=== PATIENT | female | born 1995 | race Caucasian/White ===

== ENCOUNTER → 2019-05-18 | Outpatient (CLI) | payer BC, SELFPAY ==
[2019-05-18 10:49] VITALS: BMI 25.5
[2019-05-18 13:22] LABS: HIV - WCH Non-Reactive (Nonreactive)
[2019-05-18 14:57] LABS: Chlamydia Trachomatis by PCR Negative (Negative); Neisserai gonorrhoeae by PCR Negative (Negative); Probe Check PASS; Sample Adequacy Control PASS; Specimen Processing Control PASS
[2019-05-21 02:32] LABS: Rapid Plasmin Reagin (RPR) NONREACTIVE (NONREACTIVE)
[2019-05-22 03:06] LABS: HCV Quant. RNA PCR HCV Not Detected IU/mL (.)
[2019-05-24 11:36] LABS: HEPATITIS B SURFACE AG Negative (Negative); HSV 1 IgG < 0.91 index (0.00-0.90); HSV 2 IgG < 0.91 index (0.00-0.90)
[2019-05-24 17:34] LABS: HPV Reflexed? NOT INDICATED
== END | disposition home or self-care (01) ==
PROVIDERS: Referring Provider Nurse Practitioner Women's Health; Visit Provider Nurse Practitioner Women's Health
DX: Z12.4 Encounter for screening for malignant neoplasm of cervix (principal); Z11.3 Encounter for screening for infections with a predominantly sexual mode of transmission
CPT/HCPCS: 86592; 86695; 86696; 86703; 87340; 87491; 87522; 87591; 87624; 88175; G0145

== ENCOUNTER → 2020-01-18 | Outpatient (CLI) | payer BC, SELFPAY ==
[2020-01-18 09:46] VITALS: BMI 26.6
[2020-01-18 12:27] LABS: Absolute Lymphocyte Count 1.82 X10^3/uL (0.83-4.51); Basophil# 0.03 X10^3/uL; Basophil% 0.5 % (0-1); Eosinophil# 0.11 X10^3/uL; Hematocrit 38.3 % (37-47); Hemoglobin 12.9 g/dL (12.0-15.0); Lymphocyte # 1.82 X10^3/ul (4.0); Lymphocyte % 33.3 % (19-41); Mean Corp Hgb Conc 33.7 g/dL (32-36); Mean Corpuscular Hgb 29.2 pg (27.0-32.0); Mean Corpuscular Volume 86.7 fL (81-99); Mean Platelet Vol. 11.4 fl (6.2-12.0); Monocyte# 0.52 X10^3/uL; Monocyte% 9.5 % (0-10); NRBC Flagged by Analyzer 0 % (0-5); Neutrophil # 2.96 X10^3/uL (2.7-7.7); Neutrophil % 54.3 % (47-70); Platelet Count 195 K/mm3 (150-450); RBC Distribution Width CV 11.9 % (11.6-14.6); Red Blood Count 4.42 M/mm3 (4.2-5.4); White Blood Count 5.5 K/mm3 (4.4-11.0)
[2020-01-18 12:51] LABS: Anion Gap 7 (5-15); BUN 10 mg/dL (7-18); BUN/Creat Ratio 13.4 RATIO (10-20); Chloride 108 mmol/L (98-107); Creatinine, Serum 0.75 mg/dL (0.55-1.02); EST Glomerular Filtration Rate 99 mL/min (>60); Est Glom Filt Rate - Afr Amer 120 mL/min (>60); Glucose 112 mg/dL (74-106); Sodium Level 140 mmol/L (136-145); T4 Free Direct 0.87 ng/dL (0.76-1.46); Thyroid Stim Hormone (TSH) 2.41 uIU/mL (0.358-3.74)
== END | disposition home or self-care (01) ==
LOC: BIMLAB 10:20
PROVIDERS: PCP Internal Medicine; Visit Provider Internal Medicine
DX: F32.9 Major depressive disorder, single episode, unspecified (principal); F41.9 Anxiety disorder, unspecified
CPT/HCPCS: 36415; 80048; 84439; 84443; 85025

== ENCOUNTER → 2020-05-18 09:20 | Outpatient (CLI) | payer BC, SELFPAY ==
[2020-05-18 09:06] VITALS: BMI 26.6
[2020-05-18 10:47] LABS: HIV - WCH Non-Reactive (Nonreactive)
[2020-05-18 16:20] LABS: Chlamydia Trachomatis by PCR Negative (Negative); Neisserai gonorrhoeae by PCR Negative (Negative); Probe Check PASS; Sample Adequacy Control PASS; Specimen Processing Control PASS
[2020-05-20 12:07] LABS: HCV Quant. RNA PCR HCV Not Detected IU/mL (.)
[2020-05-20 14:33] LABS: HSV 1 IgG < 0.91 index (0.00-0.90); HSV 2 IgG < 0.91 index (0.00-0.90)
[2020-05-25 02:00] LABS: Rapid Plasmin Reagin (RPR) NONREACTIVE (NONREACTIVE)
== END ==
PROVIDERS: PCP Internal Medicine; Referring Provider Nurse Practitioner Women's Health; Visit Provider Nurse Practitioner Women's Health
DX: Z11.3 Encounter for screening for infections with a predominantly sexual mode of transmission (principal)
CPT/HCPCS: 36415; 86592; 86695; 86696; 86703; 87491; 87522; 87591

== ENCOUNTER 2021-03-07 09:05 | Outpatient (RCR) | payer BC, SELFPAY ==
[2021-01-30 10:12] VITALS: BMI 33.0
== END 2021-05-08 23:59 ==
LOC: IMMUN 09:05
PROVIDERS: PCP Internal Medicine; Referring Provider Family Medicine; Visit Provider Family Medicine
DX: Z23 Encounter for immunization (principal)
CPT/HCPCS: 0001A; 0002A; 91300

== ENCOUNTER → 2021-06-01 10:49 | Outpatient (CLI) | payer BC, SELFPAY ==
[2021-06-01 10:27] VITALS: BMI 31.8
[2021-06-01 12:22] LABS: Absolute Lymphocyte Count 2.25 X10^3/uL (0.83-4.51); Absolute Neutrophil Count 4.9 X10^3/uL (2.0-7.7); Basophil# 0.06 X10^3/uL; Basophil% 0.8 % (0-1); Eosinophil# 0.13 X10^3/uL; Eosinophils% 1.6 % (0-5); Hematocrit 39.5 % (37-47); Hemoglobin 13.1 g/dL (12.0-15.0); Lymphocyte # 2.25 X10^3/ul (0.83-4.51); Lymphocyte % 28.3 % (19-41); Mean Corp Hgb Conc 33.2 g/dL (32-36); Mean Corpuscular Hgb 28.7 pg (27.0-32.0); Mean Corpuscular Volume 86.6 fL (81-99); Mean Platelet Vol. 10.8 fl (6.2-12.0); Monocyte# 0.63 X10^3/uL; Monocyte% 7.9 % (0-10); NRBC Flagged by Analyzer 0 % (0-5); Neutrophil # 4.86 X10^3/uL (2.7-7.7); Platelet Count 270 K/mm3 (150-450); RBC Distribution Width CV 12.9 % (11.6-14.6); RBC Distribution Width SD 40.3 fl (35.1-43.9); Red Blood Count 4.56 M/mm3 (4.2-5.4)
[2021-06-01 12:44] LABS: AST(SGOT) 28 U/L (15-37); Alanine Aminotransfer ALT/SGPT 42 U/L (13-56); Albumin, Serum 3.8 g/dL (3.2-5.0); Alkaline Phosphatase 77 U/L (45-117); Anion Gap 6 (5-15); BUN 11 mg/dL (7-18); BUN/Creat Ratio 17.5 RATIO (10-20); Calcium,Total 8.9 mg/dL (8.5-10.1); Chloride 104 mmol/L (98-107); Cholesterol 185 mg/dL (200); Creatinine, Serum 0.63 mg/dL (0.55-1.02); EST Glomerular Filtration Rate 120 mL/min (>60); Est Glom Filt Rate - Afr Amer 145 mL/min (>60); Globulin 3.9 g/dL (2.2-4.2); Glucose 87 mg/dL (74-106); High Density Lipoprotein 71 mg/dL; Protein, Total 7.7 g/dL (6.4-8.2); Sodium Level 137 mmol/L (136-145); Triglycerides 129 mg/dL; Very Low Density Lipoprotein 26 mg/dL (5-40)
== END ==
PROVIDERS: PCP Internal Medicine; Referring Provider Internal Medicine; Visit Provider Internal Medicine
DX: E66.9 Obesity, unspecified (principal); F32.9 Major depressive disorder, single episode, unspecified; F41.9 Anxiety disorder, unspecified
CPT/HCPCS: 36415; 80053; 80061; 85025

== ENCOUNTER → 2022-05-01 | Outpatient (CLI) | payer BC, SELFPAY ==
[2022-05-03 22:06] LABS: Chlamydia By Nucleic Acid AMP Negative (Negative)
[2022-05-03 22:32] LABS: Gonococcus By Nucleic Acid AMP Negative (Negative)
[2022-05-07 17:24] LABS: HPV Reflexed? NOT INDICATED
== END | disposition home or self-care (01) ==
LOC: LABSPEC 16:22
PROVIDERS: PCP Internal Medicine; Visit Provider Nurse Practitioner Women's Health
DX: N89.8 Other specified noninflammatory disorders of vagina (principal); Z11.3 Encounter for screening for infections with a predominantly sexual mode of transmission; Z12.4 Encounter for screening for malignant neoplasm of cervix
CPT/HCPCS: 87070; 87205; 87491; 87591; 88175; G0145

== ENCOUNTER → 2022-06-10 | Outpatient (CLI) | payer BC, SELFPAY ==
[2022-06-10 16:43] LABS: Absolute Lymphocyte Count 2.96 X10^3/uL (0.83-4.51); Absolute Neutrophil Count 4.9 X10^3/uL (2.0-7.7); Basophil# 0.04 X10^3/uL; Basophil% 0.5 % (0-1); Eosinophil# 0.14 X10^3/uL; Eosinophils% 1.6 % (0-5); Hematocrit 38.2 % (37-47); Hemoglobin 12.6 g/dL (12.0-15.0); Lymphocyte # 2.96 X10^3/ul (0.83-4.51); Lymphocyte % 33.8 % (19-41); Mean Corpuscular Volume 87.8 fL (81-99); Mean Platelet Vol. 10.7 fl (6.2-12.0); Monocyte# 0.64 X10^3/uL; Monocyte% 7.3 % (0-10); NRBC Flagged by Analyzer 0 % (0-5); Neutrophil # 4.94 X10^3/uL (2.7-7.7); Neutrophil % 56.5 % (47-70); Platelet Count 284 K/mm3 (150-450); RBC Distribution Width CV 12.8 % (11.6-14.6); RBC Distribution Width SD 41.3 fl (35.1-43.9); Red Blood Count 4.35 M/mm3 (4.2-5.4); White Blood Count 8.8 K/mm3 (4.4-11.0)
[2022-06-10 17:33] LABS: AST(SGOT) 19 U/L (15-37); Alanine Aminotransfer ALT/SGPT 28 U/L (13-56); Albumin, Serum 3.8 g/dL (3.2-5.0); Alkaline Phosphatase 60 U/L (45-117); Anion Gap 9 (5-15); BUN 12 mg/dL (7-18); BUN/Creat Ratio 19.3 RATIO (10-20); Calcium,Total 9.3 mg/dL (8.5-10.1); Chloride 102 mmol/L (98-107); Creatinine, Serum 0.62 mg/dL (0.55-1.02); EST Glomerular Filtration Rate 121 mL/min (>60); Est Glom Filt Rate - Afr Amer 146 mL/min (>60); Globulin 3.9 g/dL (2.2-4.2); Glucose 89 mg/dL (74-106); Potassium 3.9 mmol/L (3.5-5.1); Protein, Total 7.7 g/dL (6.4-8.2); Sodium Level 137 mmol/L (136-145); Thyroid Stim Hormone (TSH) 1.71 uIU/mL (0.358-3.74)
[2022-06-10 17:35] LABS: Vitamin D,25 Hydroxy 32.6 ng/mL
[2022-06-10 17:57] LABS: Internal QC Validated? YES +Cl - CLEAR BKGD; Monotest Negative (Negative)
== END | disposition home or self-care (01) ==
LOC: BIMLAB 16:07
PROVIDERS: PCP Internal Medicine; Referring Provider Physician Assistant; Visit Provider Physician Assistant
DX: J32.9 Chronic sinusitis, unspecified (principal); R61 Generalized hyperhidrosis; R53.83 Other fatigue
CPT/HCPCS: 36415; 80053; 82306; 84443; 85025; 86308

== ENCOUNTER → 2022-09-02 | Outpatient (CLI) | payer BC, SELFPAY ==
[2022-09-10 10:45] LABS: HPV Reflexed? NOT INDICATED
== END | disposition home or self-care (01) ==
LOC: LABSPEC 15:29
PROVIDERS: PCP Internal Medicine; Visit Provider Nurse Practitioner Women's Health
DX: Z12.4 Encounter for screening for malignant neoplasm of cervix (principal); N89.8 Other specified noninflammatory disorders of vagina
CPT/HCPCS: 87070; 87205; 88175; G0145

== ENCOUNTER → 2023-02-10 | Outpatient (CLI) | payer BC, SELFPAY ==
[2023-02-10 12:34] LABS: Vitamin B12 372 pg/mL (211-911); Vitamin D,25 Hydroxy 38.2 ng/mL
[2023-02-10 12:41] LABS: Absolute Lymphocyte Count 2.27 X10^3/uL (0.83-4.51); Absolute Neutrophil Count 4.1 X10^3/uL (2.0-7.7); Basophil# 0.04 X10^3/uL; Basophil% 0.6 % (0-1); Eosinophil# 0.16 X10^3/uL; Eosinophils% 2.3 % (0-5); Hematocrit 38.4 % (37-47); Hemoglobin 12.8 g/dL (12.0-15.0); Lymphocyte # 2.27 X10^3/ul (0.83-4.51); Lymphocyte % 32.1 % (19-41); Mean Corp Hgb Conc 33.3 g/dL (32-36); Mean Corpuscular Hgb 29.4 pg (27.0-32.0); Mean Corpuscular Volume 88.1 fL (81-99); Mean Platelet Vol. 10.9 fl (6.2-12.0); Monocyte% 7.1 % (0-10); NRBC Flagged by Analyzer 0 % (0-5); Neutrophil # 4.08 X10^3/uL (2.7-7.7); Neutrophil % 57.6 % (47-70); Platelet Count 273 K/mm3 (150-450); RBC Distribution Width CV 12.7 % (11.6-14.6); RBC Distribution Width SD 41.1 fl (35.1-43.9); Red Blood Count 4.36 M/mm3 (4.2-5.4); White Blood Count 7.1 K/mm3 (4.4-11.0)
[2023-02-10 12:43] LABS: AST(SGOT) 21 U/L (15-37); Alanine Aminotransfer ALT/SGPT 33 U/L (13-56); Albumin, Serum 3.6 g/dL (3.2-5.0); Alkaline Phosphatase 63 U/L (45-117); Anion Gap 9 (5-15); BUN 8 mg/dL (7-18); BUN/Creat Ratio 11.5 RATIO (10-20); Calcium,Total 9.2 mg/dL (8.5-10.1); Chloride 106 mmol/L (98-107); EST Glomerular Filtration Rate 105 mL/min (>60); Est Glom Filt Rate - Afr Amer 128 mL/min (>60); Globulin 3.7 g/dL (2.2-4.2); Glucose 135 mg/dL (74-106); Potassium 3.8 mmol/L (3.5-5.1); Protein, Total 7.3 g/dL (6.4-8.2); Sodium Level 139 mmol/L (136-145)
== END | disposition home or self-care (01) ==
LOC: BIMLAB 09:45
PROVIDERS: PCP Internal Medicine; Referring Provider Internal Medicine; Visit Provider Internal Medicine
DX: F41.9 Anxiety disorder, unspecified (principal); F32.9 Major depressive disorder, single episode, unspecified
CPT/HCPCS: 36415; 80053; 82306; 82607; 85025

== ENCOUNTER → 2023-04-14 | Outpatient (CLI) | payer BC, SELFPAY ==
--- NOTE | 2023-04-14 16:12 | RAD_ITS ---
EXAM: XR RIGHT HIP WITH PELVIS WHEN PERFORMED, 1 VIEW CLINICAL INDICATION: Right Hip Pain TECHNIQUE: Frontal view of the right hip with pelvis when performed. COMPARISON: No relevant prior studies available. FINDINGS: BONES/JOINTS: Unremarkable. No displaced fracture. No destructive or sclerotic lesions. Note that overlapping bowel shadows may however obscure fine detail. Sacroiliac joint is unremarkable. No widening of the pubic symphysis. The articular structures are unremarkable. SOFT TISSUES: Unremarkable. No soft tissue swelling or gas. RAD/HIP, UNI W/ Pelvis 2-3 Views IMPRESSION: No evidence of displaced pelvic or hip fracture. Electronically Signed: Lai Stern MD at 4:47 EDT ,
[2023-04-14 18:29] LABS: HIV - WCH Non-Reactive (Nonreactive); Hepatitis C Antibody Non-Reactive (Nonreactive); Syphilis Antibodies Non-reactive
[2023-04-16 05:07] LABS: HSV 1 IgG < 0.91 index (0.00-0.90); HSV 2 IgG < 0.91 index (0.00-0.90)
[2023-04-17 00:07] LABS: Chlamydia By Nucleic Acid AMP Negative (Negative); Gonococcus By Nucleic Acid AMP Negative (Negative)
== END | disposition home or self-care (01) ==
PROVIDERS: Nurse Practitioner Women's Health; PCP Internal Medicine; Referring Provider Internal Medicine; Visit Provider Internal Medicine
DX: N89.8 Other specified noninflammatory disorders of vagina (principal); Z20.2 Contact with and (suspected) exposure to infections with a predominantly sexual mode of transmission; M25.551 Pain in right hip
CPT/HCPCS: 36415; 73502; 86695; 86696; 86703; 86780; 86803; 87070; 87205; 87491; 87591

== ENCOUNTER 2023-08-20 17:30 | Outpatient (RCR) | payer BC, SELFPAY ==
--- NOTE | 2023-07-23 17:28 | HP.PTEVAL ---
Patient's Visit Information Visit Information Visit Information: ARELY CUEVAS is a 28 year old F referred to Physical Therapy by Dr. Diallo Torrez MD with a diagnosis of Pain in the R hip. Date of Evaluation: 07/23/23 Physical Therapist: MARGO Osman Visit Plan Frequency: 2x /Week Duration: 2 Months Plan: Add hip ext strength, HS and hip flexor stretching for home next visit. 2X/ week for 6-8 weeks for R hip strength, neutral spine core stability, postural exercise, Painfree R hip ROM, HS and hip flexor stretching on the R HEP: bridges, S/L hip abd, and prone hip ext Subjective Subjective: Pt reports that the Ortho Dr said that she possibly had a tear in her labral tear in her R. She has had pain for 10 years. She report that the pain is in her R groin and sometimes the pain radiates down her thigh to her R ankle. She has sutlte pain R thigh and hip today. She has random pain with walking and standing and at it worst hurts in sitting. She was never a runner and does not remember an injury. She does have back pain. She injured it at work 2 years ago and never filed for it. If she lifts to heavy above her waist and it will flare back up again in the middle of her back. No N&T in the R leg and no weakness unless it is really bad. She can not touch her toes on the R side like she can on the L side. It hurts on stairs when flarred up. She has pain if laying on her L side sleeping. Pain R hip pain: Pain Intensity (Out of 10): 2 Objective Objective: Gait: walks with normal gait pattern but R leg seems to be a little stiffer with gait Trunk AROM: flex 75%, Ext 50% and shys away from the L side, SB B increase popping noise but not sure where and 75%B, Rot L 50% and Rot R 75% Hip AROM: R hip flex 95 and L 120 LE strength: R hip flex 13.9 and L hip flex 11.9 R knee ext 19 and L 18.1 R knee flex 9.2 and L 9.2 Hip ext R 11 and L 10.5 R hip abd 13 and L 14.7 Patella DTR 2+/3 Tight R HS compared to the L but both are tight. Tight B hip flexors but no pain. Pt has increase core weakness with doing SLR and hip abd. Pt had increase popping in her back with prone hip ext. No pain with prone press up Good piriformis length Balance/Special Test Scores Lower Extremity Functional Score: 65 Goals Goal 1:: I HEP Goal Time Frame: 6-8 Weeks Goal 2:: Increase LE strength (at the time of the eval: LE strength: R hip flex 13.9 and L hip flex 11.9 R knee ext 19 and L 18.1 R knee flex 9.2 and L 9.2 Hip ext R 11 and L 10.5 R hip abd 13 and L 14.7) Goal Time Frame: 6-8 Weeks Goal 3:: Trunk AROM: flex 75%, Ext 50% and shys away from the L side, SB B increase popping noise but not sure where and 75%B, Rot L 50% and Rot R 75% Goal Time Frame: 6-8 Weeks Goal 4:: Increase R hip flexion AROM (95 degrees hip flexion on the R at eval). Goal Time Frame: 6-8 Weeks Goal 5:: Decrease R hip pain by 50% Goal Time Frame: 6-8 Weeks Rehabilitation Potential Rehabilitation Potential: Good Anticipated Interventions Patient/Client Instruction: Educate patient on: Condition and Plan of Care For the Purpose of:: To decrease pain, To increase ROM, To improve nutrient delivery to tissue, To improve muscle performance and motor function, To improve ability to perform ADL's, To increase tolerance to activity/condition/position, To improve performance and independence with ADL's, To decrease level of supervision to perform tasks, To improve gait and locomotor functions, To improve health of tissue, To decrease soft tissue restriction and To increase flexibility/ROM Therapeutic Exercise to Include: Strength training, Endurance training, Postural training, Flexibilty training, Gait and locomotor training, Neuromotor development, Active ROM, Dynamic Lumbar Stabilization and Scapular Strength/Stabilization For the Purpose of:: To decrease pain, To increase ROM, To improve nutrient delivery to tissue, To improve muscle performance and motor function, To improve ability to perform ADL's, To increase tolerance to activity/condition/position, To decrease soft tissue restriction and To increase flexibility/ROM Manual Therapy Techniques to Include: Passive ROM For the Purpose of:: To increase ROM, To improve nutrient delivery to tissue and To improve muscle performance and motor function Text: Thank you for the opportunity to evaluate your patient. For Medicare and Medicare HMO plans, please review the plan of care and approve it. It will need to be FAXED BACK to us at [phone] for Medicare purposes. For Medicare only, by signing this I certify the plan of care. Please let me know if there are questions or concerns regarding this plan of care. Physician Signature: Date:
--- NOTE | 2023-08-20 17:51 | HP.PTDCSUM ---
Discharge Summary D/C summary: It has been my pleasure to treat ARELY CUEVAS referred by Dr. Diallo Torrez MD, with the diagnosis of Pain in the R hip for a total of 7 visit(s). Discharge Date: 08/20/23 Please see the following information for a summary of their discharge status. Subjective Subjective: She is a little worse this week. When she tries to sleep she is getting throbbing pain in her R leg. The pillow between her knees helped some. Couple of times she could not fall asleep and also woke up a few times. She did skip the exercises this week. The exercises do not make them feel better. Pain R hip pain: Pain Intensity (Out of 10): 4 Overall Improvement % Improvement: 10 Objective Objective/Function: R hip flex 13.9 and L hip flex 11.9 R knee ext 19 and L 18.1 R knee flex 11.1 and L 9.5 Hip ext R 11 and L 12.8 R hip abd 13 and L 14.7) R hip flex PROM to approx 120 Trunk AROM: flex 85%, Ext 50%, SB B increase popping noise but not sure where and 75% B, Rot L 75% and Rot R 75% Goals Goal 1:: I HEP Goal Progress: Goal Met Goal 2:: Increase LE strength (at the time of the eval: LE strength: R hip flex 13.9 and L hip flex 11.9 R knee ext 19 and L 18.1 R knee flex 9.2 and L 9.2 Hip ext R 11 and L 10.5 R hip abd 13 and L 14.7) Goal Progress: Not Progressing Goal 3:: Trunk AROM: flex 75%, Ext 50% and shys away from the L side, SB B increase popping noise but not sure where and 75%B, Rot L 50% and Rot R 75% Goal Progress: Progressing Goal 4:: Increase R hip flexion AROM (95 degrees hip flexion on the R at eval). Goal Progress: Goal Met Goal 5:: Decrease R hip pain by 50% Goal Progress: Goal Met Plan Plan: DC PT back to Dr Sandhu Information Discharge Comments: DC PT back to Dr. sandhu sentence: If there are questions or concerns regarding this patient's physical therapy, please feel free to call me at [phone]. Thank you for the referral of this patient. Sincerely, Ginger Wang, MPT Balance/Gait/Functional tests Balance/Special Test Scores Lower Extremity Functional Score: 55 Improvement % Improvement: 10
== END 2023-08-20 19:00 | disposition home or self-care (01) ==
LOC: PT 17:30
PROVIDERS: PCP Internal Medicine; Referring Provider Orthopaedic Surgery Sports Medicine; Visit Provider Orthopaedic Surgery Sports Medicine
DX: M25.551 Pain in right hip (principal)
CPT/HCPCS: 97014; 97110; 97161; 97530; G0283

== ENCOUNTER → 2023-09-09 | Outpatient (CLI) | payer BC, SELFPAY ==
[2023-09-11 21:07] LABS: Chlamydia By Nucleic Acid AMP Negative (Negative); Gonococcus By Nucleic Acid AMP Negative (Negative)
[2023-09-13 10:08] LABS: HPV APTIMA, High Risk Negative (Negative)
== END | disposition home or self-care (01) ==
PROVIDERS: PCP Internal Medicine; Visit Provider Nurse Practitioner Women's Health
DX: Z12.4 Encounter for screening for malignant neoplasm of cervix (principal); N89.8 Other specified noninflammatory disorders of vagina
CPT/HCPCS: 87070; 87205; 87491; 87591; 87624; 88175; G0145

== ENCOUNTER → 2023-09-15 | Outpatient (CLI) | payer BC, SELFPAY ==
--- NOTE | 2023-09-15 10:00 | RAD_ITS ---
CLINICAL HISTORY: Female, 28 years old. Chronic right hip pain. PROCEDURE: ARTHROGRAM - RIGHT HIP CONSENT: The procedure as well as the benefits and possible complications including infection and bleeding were explained to the patient. Informed consent was obtained. FLUOROSCOPY TIME (if supplied): (2 minutes and 14 seconds) minutes/seconds. 71.32 mGy Injection Information: 10 cc of dilute MRI contrast. Number of images obtained: One TECHNIQUE: (All elements of maximal sterile barrier technique followed, including US elements as applicable) The patient was in the supine position. The overlying skin was prepped and draped in the usual sterile fashion. Following local anesthetic application and under direct fluoroscopic guidance, puncture of the right hip joint was performed. 2 cc of Isovue-300 was injected for confirmation. Following this, 10 cc of dilute MRI contrast was injected. The patient tolerated the procedure well. RAD/Arthrogram Hip w/ MRI IMPRESSION: Successful right hip arthrogram with injection of 10 cc of dilute MRI contrast. The patient tolerated the procedure well. Electronically Signed: Pedro Velásquez MD at 15:19 EDT ,
[2023-09-15] MEDS: Lidocaine 2% (5ml sdv) 5 ML VIAL.MPF INFILT (10:23)
[2023-09-15] MEDS: Gadoterate Meglumine Diluted 10 ML, Iopamidol 5 ML, Lidocaine 1% (20 ml mdv) 5 ML, Epin... INTRAARTIC (10:30)
[2023-09-15] MEDS: Iopamidol 10 ML in Syringe 1 EACH 600 ML INTRAARTIC (10:30)
--- NOTE | 2023-09-15 10:43 | MRI_ITS ---
STUDY: MRI ARTHROGRAM OF THE RIGHT HIP REASON FOR EXAM: Female, 28 years old. Pain. TECHNIQUE: 10 mL of dilute Gadolinium contrast was injected into the right hip joint. MRI was obtained in all 3 orthogonal planes. COMPARISON: Pelvis and right hip radiographs dated 04/14/2023. FINDINGS: Normal hip joint without articular joint space narrowing. Normal acetabulum. Normal labrum. Normal femoral head. Normal femoral neck and intratrochanteric region. There is no demonstrated fracture. Normal gluteus minimus, medius and iliopsoas tendons and distal insertions. There is no trochanteric, iliopsoas or iliopectineal bursitis. Normal superior and inferior pubic rami. Normal pubic symphysis. Normal ischial tuberosity. Normal origin of the hamstring tendons. Normal visualized iliac wing, sacroiliac joint, and sacral ala. Normal visualized soft tissue structures of the pelvis. MRI/Lower Ext/Jt Only/W Contrast IMPRESSION: Unremarkable MRI arthrogram of the right hip. Electronically Signed: Param Stevens MD at 12:05 EDT ,
== END | disposition home or self-care (01) ==
LOC: RAD 09:49
PROVIDERS: PCP Internal Medicine; Referring Provider Orthopaedic Surgery Sports Medicine; Visit Provider Orthopaedic Surgery Sports Medicine
DX: M25.551 Pain in right hip (principal)
CPT/HCPCS: 27093; 73722; 77002; Q9967

== ENCOUNTER → 2024-03-24 | Outpatient (CLI) | payer BC, SELFPAY | END | disposition home or self-care (01) | LOC: BIMLAB 09:17 | PROVIDERS: PCP Internal Medicine; Visit Provider Physician Assistant | DX: J03.90 Acute tonsillitis, unspecified (principal) | CPT/HCPCS: 87070; 87077 ==

== ENCOUNTER → 2024-04-01 | Outpatient (CLI) | payer BC, SELFPAY ==
[2024-04-01 15:07] LABS: Absolute Lymphocyte Count 2.97 X10^3/uL (0.83-4.51); Absolute Neutrophil Count 5.3 X10^3/uL (2.0-7.7); Basophil# 0.05 X10^3/uL; Basophil% 0.6 % (0-1); Eosinophil# 0.11 X10^3/uL; Eosinophils% 1.2 % (0-5); Hematocrit 38.6 % (37-47); Hemoglobin 12.8 g/dL (12.0-15.0); Lymphocyte # 2.97 X10^3/ul (0.83-4.51); Lymphocyte % 33.2 % (19-41); Mean Corp Hgb Conc 33.2 g/dL (32-36); Mean Corpuscular Hgb 28.6 pg (27.0-32.0); Mean Corpuscular Volume 86.2 fL (81-99); Mean Platelet Vol. 9.9 fl (6.2-12.0); Monocyte# 0.53 X10^3/uL; Monocyte% 5.9 % (0-10); NRBC Flagged by Analyzer 0 % (0-5); Neutrophil # 5.25 X10^3/uL (2.7-7.7); Neutrophil % 58.7 % (47-70); Platelet Count 325 K/mm3 (150-450); RBC Distribution Width CV 12.3 % (11.6-14.6); RBC Distribution Width SD 38.7 fl (35.1-43.9); Red Blood Count 4.48 M/mm3 (4.2-5.4)
[2024-04-01 15:26] LABS: International Normalized Ratio 0.9; Prothrombin Time (Protime)PT. 12.4 SECONDS (11.7-14.9)
[2024-04-01 15:33] LABS: ALB/GLOB Ratio 1.1 RATIO (0.9-2.4); AST(SGOT) 32 U/L (15-37); Alanine Aminotransfer ALT/SGPT 44 U/L (13-56); Albumin, Serum 3.9 g/dL (3.2-5.0); Alkaline Phosphatase 55 U/L (45-117); Anion Gap 5 (5-15); BUN 9 mg/dL (7-18); BUN/Creat Ratio 14.4 RATIO (10-20); Calcium,Total 9.3 mg/dL (8.5-10.1); Chloride 106 mmol/L (98-107); Creatinine, Serum 0.62 mg/dL (0.55-1.02); EST Glomerular Filtration Rate 119 mL/min (>60); Est Glom Filt Rate - Afr Amer 144 mL/min (>60); Globulin 3.6 g/dL (2.2-4.2); Glucose 96 mg/dL (74-106); Potassium 3.8 mmol/L (3.5-5.1); Protein, Total 7.5 g/dL (6.4-8.2); Sodium Level 136 mmol/L (136-145)
== END | disposition home or self-care (01) ==
LOC: BIMLAB 13:34
PROVIDERS: PCP Internal Medicine; Visit Provider Internal Medicine
DX: Z01.818 Encounter for other preprocedural examination (principal)
CPT/HCPCS: 36415; 80053; 85025; 85610

== ENCOUNTER → 2024-04-15 | Outpatient (CLI) | payer BC, SELFPAY ==
[2024-04-15 19:42] LABS: HIV - WCH Non-Reactive (Nonreactive); Hepatitis C Antibody Non-Reactive (Nonreactive); Syphilis Antibodies Non-reactive
== END | disposition home or self-care (01) ==
LOC: BIMLAB 14:51
PROVIDERS: PCP Internal Medicine; Visit Provider Nurse Practitioner
DX: Z11.3 Encounter for screening for infections with a predominantly sexual mode of transmission (principal); J02.9 Acute pharyngitis, unspecified
CPT/HCPCS: 36415; 86703; 86780; 86803; 87070; 87491; 87591

== ENCOUNTER → 2024-09-14 | Outpatient (CLI) | payer BC, SELFPAY ==
--- OUTSIDE RECORDS SUMMARY | 2024-09-14 17:27 | XMS RPT_ITS | CCD ---
Author Organization [facility] Care Team Providers Care It Network Architect Name Role Phone Norma Grove Unavailable Unavailable Norma Grove Unavailable Unavailable Results Test Name Value Interpretation Reference Range Facility CNOVon 02-11-2020 CNOV Office Visit (UCWSTR ) ARELY CUEVAS ([id number]) 1995 F Date Time Provider Department 02/11/20 7:45 AM ROSSANA PAZ [facility] During your visit today, we recorded the following information about you: Temperature Pulse Respiration Blood pressure 98.9 degrees 102/minute 16/minute 126/82 Weight 79.4 kg Rossana Paz APRN.RESIDENT CARE PROVIDER 02/11/2020 12:02 PM Signed Subjective HPI Pt presents with c/o cough and chest congestion x?7 days. Cough is moist, nonproductive. Had runny nose and tactile fevers on day 1AND2. Denies fever, chills, myalgias, dyspnea, wheezing, chest tightness. Has not taken any OTC medications. Did not receive influenza vaccine this season. Requests work excuse. No recent travel or known exposure to COVID19. Review of Systems Constitutional: Negative for chills and fever. HENT: Positive for congestion and sore throat. Negative for ear discharge, ear pain, sinus pain and tinnitus. Respiratory: Positive for cough. Negative for sputum production, shortness of breath and wheezing. Cardiovascular: Negative for chest pain. Skin: Negative for rash. Neurological: Negative for headaches. Objective Physical Exam Constitutional: She is oriented to person, place, and time and well-developed, well-nourished, and in no distress. No distress. HENT: Head: Normocephalic. Right Ear: Hearing, tympanic membrane, external ear and ear canal normal. Left Ear: Hearing, tympanic membrane, external ear and ear canal normal. Nose: Nose normal. Right sinus exhibits no maxillary sinus tenderness and no frontal sinus tenderness. Left sinus exhibits no maxillary sinus tenderness and no frontal sinus tenderness. Mouth/Throat: Uvula is midline, oropharynx is clear and moist and mucous membranes are normal. No oropharyngeal exudate, posterior oropharyngeal edema, posterior oropharyngeal erythema or tonsillar abscesses. Eyes: Pupils are equal, round, and reactive to light. Conjunctivae are normal. Right eye exhibits no discharge. Left eye exhibits no discharge. Neck: Neck supple. Cardiovascular: Normal rate, regular rhythm and normal heart sounds. Exam reveals no gallop and no friction rub. No murmur heard. Pulmonary/Chest: Effort normal and breath sounds normal. No accessory muscle usage. No tachypnea. No respiratory distress. She has no decreased breath sounds (CTA, good air movement throughout, no cough noted during exam.). She has no wheezes. She has no rhonchi. She has no rales. Lymphadenopathy: She has no cervical adenopathy. Neurological: She is alert and oriented to person, place, and time. Skin: Skin is warm. She is not diaphoretic. BP 126/82 Pulse 102 Temp 37.2 ?C (98.9 ?F) (Left Tympanic) Resp 16 Wt 79.4 kg (175 lb) SpO2 98% .Patient presents with: Cough: with chest congestion x 1 week History reviewed. No pertinent past medical history. History reviewed. No pertinent surgical history. ALLERGIES Sulfa (Sulfonamide Antibiotics) MEDICATIONS escitalopram oxalate (LEXAPRO) 5 mg tablet Take 1 tablet by mouth once daily. diphenhydrAMINE (BENADRYL) 25 mg capsule diphenhydrAMINE Diphenhydramine Hcl Active 25 MG AT BEDTIME January 18, 2020 9:40am [facility] ([id number]) Valerian Root 100 mg cap valerian root extract Valerian Root Active 100 MG 3 to 4 times per day January 18, 2020 9:39am 01-18-2020 [facility] ([id number]) melatonin 10 mg tab Melatonin Melatonin Active 10 MG BEDTIME January 18, 2020 9:39am 01-18-2020 [facility] ([id number]) benzonatate (TESSALON PERLES) 100 mg capsule Take 1 capsule by mouth three times daily as needed. guaiFENesin (MUCINEX) 600 mg 12 hr tablet Take 2 tablets by mouth twice daily. History reviewed. No pertinent family history. Social History Tobacco Use - Smoking status: Never Smoker - Smokeless tobacco: Never Used Substance Use Topics - Alcohol use: Not on file - Drug use: Not on file ASSESSMENT/PLAN: 1. Fever, unspecified fever cause - ICD9: 780.60, ICD10: R50.9 (primary diagnosis) - INFLUENZA AANDB MOLECULAR (POC) 2. Viral URI with cough - ICD9: 465.9, ICD10: J06.9 - Discussed viral etiology and rationale for treatment. - Symptomatic treatment with prn analgesia - Supportive care with fluids and rest - Follow up in 3-5 days if symptoms persist or sooner if worsening of symptoms - BENZONATATE 100 MG CAPSULE - MUCINEX 600 MG TABLET, EXTENDED RELEASE The patient is instructed to return or seek emergency treatment if symptoms become worse or with any acute change in condition. The patient verbalizes understanding and is in agreement with plan of care. Rossana Paz CNP Referring Provider: SELF [[id number]] Allergies As of Date: 02/11/2020 Noted Allergy Reaction SULFA (SULFONAMIDE ANTIBIOTICS) 05/18/2019 4 - Hives Date Reviewed: 02/11/2020 Reviewed by: Lacie Copeland Ma - Fully Assessed Reason for Visit: Cough [28] Cmt: with chest congestion x 1 week Primary Visit Diagnosis:Fever, unspecified fever cause [R50.9] Other Visit Diagnosis:Viral URI with cough [J06.9] Order(s):INFLUENZA AANDB MOLECULAR (POC) [1043919] Order #: [id number]. #:[id number] 143-LAB benzonatate (TESSALON PERLES) 100 mg capsuleTake 1 capsule by mouth three times daily as needed.Disp: 40 capsuleRfl: 0 guaiFENesin (MUCINEX) 600 mg 12 hr tabletTake 2 tablets by mouth twice daily.Disp: 30 tabletRfl: 0 Prescriptions as of 02/11/2020 Sig: ESCITALOPRAM 5 MG TABLET Take 1 tablet by mouth once d* DIPHENHYDRAMINE 25 MG CAPSULE diphenhydrAMINE Diphenhydrami* VALERIAN ROOT 100 MG CAPSULE valerian root extract Lorena* MELATONIN 10 MG TABLET Melatonin Melatonin Active 10* BENZONATATE 100 MG CAPSULE Take 1 capsule by mouth three* MUCINEX 600 MG TABLET, EXTEND* Take 2 tablets by mouth twice* Problem List As Of Date: 02/11/2020 (None) Prescriptions ordered this encounter Disp Refills Start End BENZONATATE 100 MG CAPSULE 40 c* 0 02/11/2020 Route: ORAL Sig: Take 1 capsule by mouth three times daily as needed. MUCINEX 600 MG TABLET, EXTENDED RELE* 30 t* 0 02/11/2020 Route: ORAL Sig: Take 2 tablets by mouth twice daily. Letter Text Encounter Status:Closed by ROSSANA PAZ CNP on 02/11/[address] [facility] PROGRESSon 02-11-2020 PROGRESS HNO ID: [id number] Author: Rossana Paz Service: ? Author Type: Nurse Practitioner Type: Progress Notes Filed: 02/11/2020 12:02 PM Note Text: Subjective HPI Pt presents with c/o cough and chest congestion x?7 days. Cough is moist, nonproductive. Had runny nose and tactile fevers on day 1AND2. Denies fever, chills, myalgias, dyspnea, wheezing, chest tightness. Has not taken any OTC medications. Did not receive influenza vaccine this season. Requests work excuse. No recent travel or known exposure to COVID19. Review of Systems Constitutional: Negative for chills and fever. HENT: Positive for congestion and sore throat. Negative for ear discharge, ear pain, sinus pain and tinnitus. Respiratory: Positive for cough. Negative for sputum production, shortness of breath and wheezing. Cardiovascular: Negative for chest pain. Skin: Negative for rash. Neurological: Negative for headaches. Objective Physical Exam Constitutional: She is oriented to person, place, and time and well-developed, well-nourished, and in no distress. No distress. HENT: Head: Normocephalic. Right Ear: Hearing, tympanic membrane, external ear and ear canal normal. Left Ear: Hearing, tympanic membrane, external ear and ear canal normal. Nose: Nose normal. Right sinus exhibits no maxillary sinus tenderness and no frontal sinus tenderness. Left sinus exhibits no maxillary sinus tenderness and no frontal sinus tenderness. Mouth/Throat: Uvula is midline, oropharynx is clear and moist and mucous membranes are normal. No oropharyngeal exudate, posterior oropharyngeal edema, posterior oropharyngeal erythema or tonsillar abscesses. Eyes: Pupils are equal, round, and reactive to light. Conjunctivae are normal. Right eye exhibits no discharge. Left eye exhibits no discharge. Neck: Neck supple. Cardiovascular: Normal rate, regular rhythm and normal heart sounds. Exam reveals no gallop and no friction rub. No murmur heard. Pulmonary/Chest: Effort normal and breath sounds normal. No accessory muscle usage. No tachypnea. No respiratory distress. She has no decreased breath sounds (CTA, good air movement throughout, no cough noted during exam.). She has no wheezes. She has no rhonchi. She has no rales. Lymphadenopathy: She has no cervical adenopathy. Neurological: She is alert and oriented to person, place, and time. Skin: Skin is warm. She is not diaphoretic. BP 126/82 Pulse 102 Temp 37.2 ?C (98.9 ?F) (Left Tympanic) Resp 16 Wt 79.4 kg (175 lb) SpO2 98% .Patient presents with: Cough: with chest congestion x 1 week History reviewed. No pertinent past medical history. History reviewed. No pertinent surgical history. ALLERGIES Sulfa (Sulfonamide Antibiotics) MEDICATIONS escitalopram oxalate (LEXAPRO) 5 mg tablet Take 1 tablet by mouth once daily. diphenhydrAMINE (BENADRYL) 25 mg capsule diphenhydrAMINE Diphenhydramine Hcl Active 25 MG AT BEDTIME January 18, 2020 9:40am 01-18-2020 [facility] ([id number]) Valerian Root 100 mg cap valerian root extract Valerian Root Active 100 MG 3 to 4 times per day January 18, 2020 9:39am 01-18-2020 [facility] ([id number]) melatonin 10 mg tab Melatonin Melatonin Active 10 MG BEDTIME January 18, 2020 9:39am 01-18-2020 [facility] ([id number]) benzonatate (TESSALON PERLES) 100 mg capsule Take 1 capsule by mouth three times daily as needed. guaiFENesin (MUCINEX) 600 mg 12 hr tablet Take 2 tablets by mouth twice daily. History reviewed. No pertinent family history. Social History Tobacco Use - Smoking status: Never Smoker - Smokeless tobacco: Never Used Substance Use Topics - Alcohol use: Not on file - Drug use: Not on file ASSESSMENT/PLAN: 1. Fever, unspecified fever cause - ICD9: 780.60, ICD10: R50.9 (primary diagnosis) - INFLUENZA AANDB MOLECULAR (POC) 2. Viral URI with cough - ICD9: 465.9, ICD10: J06.9 - Discussed viral etiology and rationale for treatment. - Symptomatic treatment with prn analgesia - Supportive care with fluids and rest - Follow up in 3-5 days if symptoms persist or sooner if worsening of symptoms - BENZONATATE 100 MG CAPSULE - MUCINEX 600 MG TABLET, EXTENDED RELEASE The patient is instructed to return or seek emergency treatment if symptoms become worse or with any acute change in condition. The patient verbalizes understanding and is in agreement with plan of care. Rossana Paz, ELRINDA Normal [facility] CHEST-2 VIEWon 05-04-2018 CHEST-2 VIEW ARELY CUEVAS [id number] physician: Norma Brady LOC:[id number] physician: Norma Brady 1995 22DOS: 05/04/18 Acc# : [id number]/Proc: CHEST-2 VIEWDept: RADIOLOGYINDICATION: Shortness of breath, cough and congestion for five days. Fever. TECHNIQUE: Frontal and lateral chest. COMPARISON: None Available. FINDINGS: The cardiomediastinal silhouette is normal in size. There is no consolidationr atelectasis ineither lung. There are no pleural effusions. There is no pneumothorax. Noacute osseous process. IMPRESSION: No acute cardiopulmonary disease. 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 [facility] Comment on above: Performed By: #### H EMG ####[facility] #[id number] [place] [address] H63D HEMOCHROMATOSIS MUTATION Negative [facility] Comment on above: Performed By: #### H EMG ####[facility] #[id number] [place] [address] HEMOCHROMATOSIS MUT INTERP See Note [facility] Comment on above: Result Comment: Adelina cation for testing: Carrier screening or diagnostic testingfor hereditary hemochromatosis.Hemochromatosis Interpretive Results: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 and the normal allele.H63D: Negative - The patient is negative for the HFE Z00Hpcuqnolz.S65C: Negative - The patient is negative for the HFE J70Omlrwdema.Although this genotype may correlate with increased serum ironand transferrin saturation, it is rarely associated withsymptoms of hereditary hemochromatosis.This result has been reviewed and approved by True Diallo, Ph.D.BACKGROUND INFORMATION: Hemochromatosis (HFE) 3 MutationsCHARACTERISTICS: Disorder of iron metabolism resulting inexcessive iron storage leading to increased skin pigmentation,arthritis, hypogonadism, diabetes mellitus, heartarrhythmias/failure, cirrhosis and liver carcinoma.INCIDENCE: One in 300 individuals of Northern descent;unknown in other ethnicities.INHERITANCE: Autosomal recessive.PENETRANCE: 5 percent of C282Y homozygotes, 1 percent yaL880E/H63D compound heterozygotes and rare H63D homozygotesdevelop clinical symptoms.CAUSE: Two pathogenic HFE gene mutations on opposite chromosomes.MUTATIONS TESTED: p.C282Y (c.845G>A), p.H63D (c.187C>G), andp.S65C (c.193A>T).CLINICAL SENSITIVITY: 85 percent of hereditary hemochromatosisin Northern Europeans is caused by C282Y homozygosity and 5percent by C282Y/H63D compound heterozygosity.METHODOLOGY: PCR and fluorescence monitoring.ANALYTICAL SENSITIVTY AND SPECIFICITY: 99 percent.LIMITATIONS: HFE mutations, other than those targeted, will notbe detected. Diagnostic errors can occur due to rare sequencevariations.This test is performed pursuant to an agreement with [employer].Test developed and characteristics determined by [facility]. See Compliance Statement C: Capzles/CSPerformed by [facility],[address] [place] [address] uck.Capzles, Justen Patterson MD, Lab. Director Performed By: #### H EMG ####[facility] #[id number] [place] [address] HFE PCR SPECIMEN Whole Blood Normal [facility] Comment on above: Performed By: #### H EMG ####[facility] #[id number] [place] [address] S65C HEMOCHROMATOSIS MUTATION Negative Normal [facility] Comment on above: Performed By: #### H EMG ####[facility] #[id number] [place] [address] TRANSFERRINon 02-11-2018 Transferrin 308 mg/dL Normal 200-400 [facility] Comment on above: Result Comment: Perf ormed by [facility],[address] [place] [address] hbt.Capzles, Justen Patterson MD, Lab. Director Performed By: #### T RANS ####[facility] #[id number] [place] [address] CBC with AUTO DIFFon 018 BAS0 % 0.90 % Normal 0-2 [facility] Comment on above: Performed By: #### C BC, DIFF (MANUAL) ####[facility] [place] [address] Basophils Auto #/vol (Bld) 0.0 10*3/uL Normal 0-0.1 [facility] Comment on above: Performed By: #### C BC, DIFF (MANUAL) ####[facility] [place] [address] Eosinophils 0.1 10*3/uL Normal 0.0-1.80 [facility] Comment on above: Performed By: #### C BC, DIFF (MANUAL) ####[address] [place] [address] Eosinophils/100 leukocytes 2.2 % Normal 0-8 [facility] Comment on above: Performed By: #### C BC, DIFF (MANUAL) ####[address] [place] [address] Erythrocytes (RBC) 4.62 10*6/uL Normal 4.20-5.50 [facility] Comment on above: Performed By: #### C BC, DIFF (MANUAL) ####[address] [place] [address] GRAN # 2.2 K/uL Normal 2.2-9.1 [facility] Comment on above: Performed By: #### C BC, DIFF (MANUAL) ####[address] [place] [address] GRAN % 44.9 % Normal 42-80 [facility] Comment on above: Performed By: #### C BC, DIFF (MANUAL) ####[address] [place] [address] Hematocrit (HCT) 40.6 % Normal 37.0-47.0 [facility] Comment on above: Performed By: #### C BC, DIFF (MANUAL) ####[address] [place] [address] Hemoglobin mass conc (Bld) 14.0 g/dL Normal 12.0-16.0 [facility] Comment on above: Performed By: #### C BC, DIFF (MANUAL) ####[address] [place] [address] Hemoglobin mass conc (Bld) 30.3 pg Normal 26.0-32.0 [facility] Comment on above: Performed By: #### C BC, DIFF (MANUAL) ####[address] [place] [address] Lymphocytes 2.1 10*3/uL Normal 1.0-4.0 [facility] Comment on above: Performed By: #### C BC, DIFF (MANUAL) ####[address] [place] [address] Lymphocytes/100 leukocytes 43.0 % Normal 16-48 [facility] Comment on above: Performed By: #### C BC, DIFF (MANUAL) ####[facility] [address] [place] [address] MCH 34.5 g/dL Normal 31.0-36.0 [facility] Comment on above: Performed By: #### C BC, DIFF (MANUAL) ####[address] [place] [address] MCV 87.9 fL Normal 80-97 [facility] Comment on above: Performed By: #### C BC, DIFF (MANUAL) ####[address] [place] [address] Monocytes 0.4 10*3/uL Normal 0.1-1.7 [facility] Comment on above: Performed By: #### C BC, DIFF (MANUAL) ####[address] [place] [address] Monocytes/100 leukocytes 9.0 % Normal 3-9 [facility] Comment on above: Performed By: #### C BC, DIFF (MANUAL) ####[address] [place] [address] Platelet mean volume (PMV) 9.1 fL Normal 6.6-10.5 [facility] Comment on above: Performed By: #### C BC, DIFF (MANUAL) ####[address] [place] [address] Platelets 222 10*3/uL Normal 140-450 [facility] Comment on above: Performed By: #### C BC, DIFF (MANUAL) ####[address] [place] [address] RED CELL DISTRI WIDTH 13.0 % Normal 11.0-15.5 [facility] Comment on above: Performed By: #### C BC, DIFF (MANUAL) ####[address] [place] [address] WBC (Leukocytes) 4.9 10*3/uL Normal 4.0-11.0 [facility] Comment on above: Performed By: #### C BC, DIFF (MANUAL) ####[address] [place] [address] COMPREHENSIVE METABOLIC PANE Britton 02-10-2018 Alanine aminotransferase (ALT) 21 U/L Normal 12-78 [facility] Comment on above: Performed By: #### T IBC, MARY, [place] ####[address] [place] [address] Albumin 3.9 g/dL Normal 3.0-5.0 [facility] Comment on above: Performed By: #### T MARY SHORE [place] ####[facility] [facility] [place] [address] Albumin/Globulin Ratio 1.1 {ratio} Normal 1.1-1.8 [facility] Comment on above: Performed By: #### T MARY SHORE [place] ####[facility] [facility] [address] Alkaline phosphatase (ALP) 38 U/L Low 45-117 [facility] Comment on above: Performed By: #### MARY CHAPIN [place] ####[facility] [facility] [address] Anion gap 13.1 mmol/L Normal 11-23 [facility] Comment on above: Performed By: #### MARY CHAPIN [place] ####[facility] [facility] [address] Bilirubin (total) 0.6 mg/dL Normal 0-1.0 [facility] Comment on above: Performed By: #### MAYR CHAPIN [place] ####[address] [place] [address] Calcium 8.7 mg/dL Normal 8.5-10.1 [facility] Comment on above: Performed By: #### MARY CHAPIN [place] ####[facility] [place] [address] Chloride 105 mmol/L Normal 98-107 [facility] Comment on above: Performed By: #### MARY CHAPIN [place] ####[facility] [place] [address] CO2 26.0 mmol/L Normal 21-32 [facility] Comment on above: Performed By: #### Maximiliano IBMARY Gil [place] ####[facility] [facility] [address] Creatinine 0.60 mg/dL Normal 0.4-1.2 [facility] Comment on above: Performed By: #### MARY CHAPIN [place] ####[facility] [facility] [address] eGFR (MDRD) mL/min/{1.73_m2} Normal [facility] Comment on above: Performed By: #### MARY CHAPIN [place] ####[facility] [facility] [address] eGFR (non-black) mL/min/{1.73_m2} Normal [facility] Comment on above: Result Comment: THE NORMAL LEVEL OF GFR VARIES ACCORDING TO AGE, SEX, ANDBODY SIZE. A GFR LEVEL OF LESS THAN 60 ML/MIN REPRESENTSLOSS OF THE ADULT LEVEL OF NORMAL KIDNEY FUNCTION. Performed By: #### T IBCMARY, [place] ####[facility] [address] [place] [address] Globulin 3.7 g/dL Normal 2.5-4.6 [facility] Comment on above: Performed By: #### T IBCMARY, [place] ####[facility] [address] [place] [address] Glucose mass conc 93 mg/dL Normal 70-100 [facility] Comment on above: Performed By: #### T IBCMARY [place] ####[facility] [address] [place] [address] Potassium molar conc 3.9 mmol/L Normal 3.6-5.2 [facility] Comment on above: Performed By: #### T IBCMARY, [place] ####[facility] [address] [place] [address] Protein 7.6 g/dL Normal 6.0-8.3 [facility] Comment on above: Performed By: #### T IBCMARY, [place] ####[facility] [facility] [address] SGOT/AST 15 U/L Normal 9-34 [facility] Comment on above: Performed By: #### T IBMARY Gil [place] ####[address] [place] [address] Sodium 140 mmol/L Normal 136-147 [facility] Comment on above: Performed By: #### T IBCMARY [place] ####[facility] [facility] [address] Urea nitrogen 9.0 mg/dL Normal 7-18 [facility] Comment on above: Performed By: #### T IBCMARY, [place] ####[facility] [place] [address] DIFFERENTIALon 02-10-2018 Erythrocyte morphology ESSENTIALLY NORMAL Normal [facility] Comment on above: Performed By: #### C BC, DIFF (MANUAL) ####[facility] [address] [place] [address] IMMATURE GRANS NONE SEEN Normal [facility] Comment on above: Performed By: #### C BC, DIFF (MANUAL) ####[facility] [facility] [address] Basophils/100 WBC Auto (Bld) 2 % Normal 0-2 [facility] Comment on above: Performed By: #### C BC, DIFF (MANUAL) ####[facility] [place] [address] Eosinophils/100 leukocytes 2 % Normal 0-8 [facility] Comment on above: Performed By: #### C BC, DIFF (MANUAL) ####[facility] [facility] [address] Lymphocytes/100 leukocytes 59 % High 16-48 [facility] Comment on above: Performed By: #### C BC, DIFF (MANUAL) ####[facility] [facility] [place] [address] Monocytes/100 leukocytes 6 % Normal 3-9 [facility] Comment on above: Performed By: #### C BC, DIFF (MANUAL) ####[address] [place] [address] Neutrophils/100 leukocytes 31 % Low 42-80 [facility] Comment on above: Performed By: #### C BC, DIFF (MANUAL) ####[address] [place] [address] TOTAL CELLS COUNTED 100 #CELLS Normal [facility] Comment on above: Performed By: #### C BC, DIFF (MANUAL) ####[address] [place] [address] FERRITINon 02-10-2018 FERRITIN 41.6 ng/mL Normal 8-252 [facility] Comment on above: Performed By: #### T IBC, [place], [place] ####[facility] [place] [address] TIBCon 02-10-2018 % IRON SATURATION 35.5 % Normal 20-55 [facility] Comment on above: Performed By: #### T IBC, [place], [place] ####[facility] [facility] [address] Iron 139 ug/dL Normal 50-170 [facility] Comment on above: Performed By: #### T IBC, [place], [place] ####[address] [place] [address] TOTAL IRON BINDING CAPACITY 392 ug/dL Normal 250-450 [facility] Comment on above: Performed By: #### T IB, MARY, [place] ####[address] [address] Encounters Encounter Date Encounter Type Care Provider Facility Start: 05-04-2018 Ambulatory [facility] ty:[facility] Start: 02-10-2018 Ambulatory [facility] ty:[facility] Payers Date Payer Category Payer Unknown [id number] Summary Purpose Family History No Family History Records FoundNo Family History Records Found Advance Directives No Advanced Directives Records FoundNo Advanced Directives Records Found Additional Source Comments INFORMATION SOURCE (unrecogn ized section and content) DATE CREATED AUTHOR 05/19/2018 [facility] DATE CREATED AUTHOR AUTHOR'S TRIPP SIDDIQUI 02/11/2020 [facility] FOR RECORDS PERTAINING TO PATIENTS WHO ARE OR HAVE BEEN ENROLLED IN A CHEMICAL DEPENDENCY/SUBSTANCEABUSE PROGRAM, SOME INFORMATION MAY BE OMITTED. This clinical summary was aggregated from multiple sources. Caution should be exercised in using it in the provision of clinical care. This summary normalizes information from multiple sources, and as a consequence, information in this document may materially change the coding, format and clinical context of patient data. In addition, data may be omitted in some cases. CLINICAL DECISIONS SHOULD BE BASED ON THE PRIMARY CLINICAL RECORDS. [facility]. provides no warranty or guarantee of the accuracy or completeness of information in this document.
== END | disposition home or self-care (01) ==
PROVIDERS: PCP Internal Medicine; Referring Provider Nurse Practitioner Women's Health; Visit Provider Nurse Practitioner Women's Health
DX: N89.8 Other specified noninflammatory disorders of vagina (principal); Z11.3 Encounter for screening for infections with a predominantly sexual mode of transmission
CPT/HCPCS: 87070; 87205; 87491; 87591

== ENCOUNTER → 2024-10-19 | Outpatient (CLI) | payer BC, SELFPAY ==
--- NOTE | 2024-10-19 15:15 | RAD_ITS ---
INDICATION: cough EXAMINATION/TECHNIQUE: X-RAY - XR Chest 2 Views COMPARISON: No relevant prior comparison study available FINDINGS: LINES/DEVICES: None. LUNGS: No consolidation, edema or effusion. No pneumothorax. MEDIASTINUM AND CARDIOVASCULAR STRUCTURES: Cardiac silhouette not enlarged. Central airways and mediastinal contour are unremarkable. BONES AND SOFT TISSUES: Unremarkable. RAD/Chest PA and Lateral IMPRESSION: No radiographic evidence of acute cardiopulmonary disease. Electronically Signed: Maegan Ramirez MD at 8:03 EST ,
== END | disposition home or self-care (01) ==
LOC: MTRAD 15:15
PROVIDERS: PCP Internal Medicine; Referring Provider Physician Assistant; Visit Provider Physician Assistant
DX: R05.9 Cough, unspecified (principal)
CPT/HCPCS: 71046

== ENCOUNTER → 2024-12-23 | Outpatient (CLI) | payer BC, SELFPAY ==
[2024-12-23 13:02] LABS: HIV - WCH Non-Reactive (Nonreactive); Hepatitis B Surface Antibody Non-Reactive; Hepatitis B Surface Antigen Non-Reactive (Nonreactive); Hepatitis C Antibody Non-Reactive (Nonreactive)
[2024-12-24 05:07] LABS: Hepatitis B Core AB IgM Negative (Negative)
== END | disposition home or self-care (01) ==
LOC: MTLAB 09:05
PROVIDERS: PCP Internal Medicine; Referring Provider Physician Assistant; Visit Provider Physician Assistant
DX: L82.1 Other seborrheic keratosis (principal); L57.8 Other skin changes due to chronic exposure to nonionizing radiation; D22.5 Melanocytic nevi of trunk; L81.4 Other melanin hyperpigmentation; Z71.89 Other specified counseling; L21.8 Other seborrheic dermatitis; L81.8 Other specified disorders of pigmentation; D22.61 Melanocytic nevi of right upper limb, including shoulder; D23.72 Other benign neoplasm of skin of left lower limb, including hip; D48.5 Neoplasm of uncertain behavior of skin; L90.5 Scar conditions and fibrosis of skin; Z11.59 Encounter for screening for other viral diseases
CPT/HCPCS: 36415; 86703; 86705; 86706; 86803; 87340

== ENCOUNTER → 2025-02-03 | Outpatient (CLI) | payer BC, SELFPAY ==
--- NOTE | 2025-02-03 15:07 | RAD_ITS ---
PROCEDURE: CHEST PA AND LATERAL REASON FOR EXAM: Chest pain TECHNIQUE: Frontal and lateral views of the chest. COMPARISON: 10/19/2024 FINDINGS: The cardiothymic contour is normal. The lungs are clear. The bones are unremarkable. RAD/Chest PA and Lateral IMPRESSION: No acute cardiopulmonary process. Reading Location: [facility]
== END | disposition home or self-care (01) ==
LOC: MTRAD 15:06
PROVIDERS: PCP Internal Medicine; Referring Provider Nurse Practitioner; Visit Provider Nurse Practitioner
DX: R05.9 Cough, unspecified (principal)
CPT/HCPCS: 71046

== ENCOUNTER → 2025-04-05 | Outpatient (CLI) | payer BC, SELFPAY | END | disposition home or self-care (01) | LOC: LABSPEC 15:07 | PROVIDERS: PCP Internal Medicine; Referring Provider Nurse Practitioner Women's Health; Visit Provider Nurse Practitioner Women's Health | DX: N89.8 Other specified noninflammatory disorders of vagina (principal) | CPT/HCPCS: 87070; 87205 ==

== ENCOUNTER → 2025-06-08 | Outpatient (CLI) | payer BC, SELFPAY | END | disposition home or self-care (01) | LOC: LABSPEC 16:16 | PROVIDERS: PCP Internal Medicine; Visit Provider Nurse Practitioner Family | DX: N89.8 Other specified noninflammatory disorders of vagina (principal) | CPT/HCPCS: 87070; 87205 ==

== ENCOUNTER → 2025-07-07 | Outpatient (CLI) | payer BC, SELFPAY ==
[2025-07-07 09:01] LABS: Hematocrit 35.7 % (37-47); Hemoglobin 12.1 g/dL (12.0-15.0); Immature Granulocytes Count 0.010 X10^3/uL (0.0-0.0); Mean Corp Hgb Conc 33.9 g/dL (32-36); Mean Corpuscular Volume 84.0 fL (81-99); Mean Platelet Vol. 10.1 fl (6.2-12.0); NRBC Flagged by Analyzer 0 % (0-5); Platelet Count 271 K/mm3 (150-450); RBC Distribution Width CV 12.9 % (11.6-14.6); RBC Distribution Width SD 39.1 fl (35.1-43.9); Red Blood Count 4.25 M/mm3 (4.2-5.4); White Blood Count 6.4 K/mm3 (4.4-11.0)
[2025-07-07 10:06] LABS: AST(SGOT) 21 U/L (<=31); Alanine Aminotransfer ALT/SGPT 15 U/L (<=34); Albumin, Serum 4.1 g/dL (3.5-5.0); Alkaline Phosphatase 62 U/L (35-104); Anion Gap 13 (5-15); BUN 7 mg/dL (4-19); BUN/Creat Ratio 12.1 RATIO (10-20); Calcium,Total 9.1 mg/dL (7.6-11.0); Carbon Dioxide 19.5 mmol/L (21.0-32.0); Chloride 103 mmol/L (98-108); Globulin 2.8 g/dL (2.2-4.2); Glucose 133 mg/dL (70-99); Potassium 3.5 mmol/L (3.3-5.1)
[2025-07-08 18:08] LABS: Immunoglobulin A 181 mg/dL (87-352)
[2025-07-12 00:07] LABS: Egg, Whole <0.10 kU/L (Class 0); Mussels <0.10 kU/L (Class 0)
== END | disposition home or self-care (01) ==
LOC: LAB 08:36
PROVIDERS: PCP Internal Medicine; Referring Provider Student in an Organized Health Care Education/Training Program; Visit Provider Student in an Organized Health Care Education/Training Program
DX: K21.9 Gastro-esophageal reflux disease without esophagitis (principal)
CPT/HCPCS: 36415; 80053; 82784; 83516; 85025; 86003; 86005; 86255

== ENCOUNTER → 2025-10-07 | Outpatient (CLI) | payer BC, SELFPAY ==
[2025-10-12 08:09] LABS: Calprotectin, Stool 80 ug/g (0-120)
== END | disposition home or self-care (01) ==
LOC: LABSPEC 09:13
PROVIDERS: PCP Internal Medicine; Referring Provider Student in an Organized Health Care Education/Training Program; Visit Provider Student in an Organized Health Care Education/Training Program
DX: K21.9 Gastro-esophageal reflux disease without esophagitis (principal); R19.5 Other fecal abnormalities
CPT/HCPCS: 83993; 87493